=== PATIENT | male | born 1970 | race Caucasian/White ===

== ENCOUNTER 2017-09-03 19:39 | Outpatient (CLI) | payer SELFPAY | END 2017-09-03 19:40 | disposition critical access hospital (66) | LOC: EMS 19:39 | PROVIDERS: ATTEND Surgery | DX: R10.9 Unspecified abdominal pain (principal) | CPT/HCPCS: A0425; A0429 ==

== ENCOUNTER 2017-09-03 20:04 | Emergency (ER) | payer SELFPAY ==
--- NOTE | 2017-09-03 20:19 | ED Physician Documentation ---
PD HPI ABD PAIN - Stated complaint Stated Complaint: ABD PAIN/HX OF CROHN'S - Chief complaint Chief Complaint: Abd Pain - History obtained from History obtained from: Patient, EMS - History of Present Illness Timing - onset: Other (47-year-old gentleman presents by ambulance. He is intoxicated, not a great historian. He says he has Crohn's disease and needs help with pain. Unclear how long he has been in pain or what he has tried before.) Review of Systems Unable to obtain: Intoxicated PD PAST MEDICAL HISTORY - Past Medical History Past Medical History: Yes Cardiovascular: ID Neuro: CVA GI: Crohn's disease - Allergies Allergies/Adverse Reactions: Allergies Allergy/AdvReac Type Severity Reaction Status Date / Time dicyclomine [From Bentyl] Allergy Unknown Verified 09/03/17 20:11 fentanyl Allergy Unknown Verified 09/03/17 20:11 ketorolac [From Toradol] Allergy Unknown Verified 09/03/17 20:11 tramadol Allergy Unknown Verified 09/03/17 20:11 - Social History Does the pt smoke?: No Smoking Status: Never smoker Does the pt drink ETOH?: Yes Does the pt have substance abuse?: No - Immunizations Immunizations are current?: No - POLST Patient has POLST: No PD ED PE NORMAL - Vitals Vital signs reviewed: Yes - General General: Other (Somnolence, arousable, answers simple questions, a vague historian who smells of alcohol. 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 Eye Opening: Spontaneous Motor: Obeys Commands Verbal: Confused GCS Score: 14 Results - Vitals Vitals: Vital Signs - 24 hr 09/03/17 09/03/17 20:06 22:08 Temperature 36.4 C L 36.6 C Heart Rate 84 84 Respiratory 20 18 Rate Blood Pressure 103/60 98/49 L O2 Saturation 93 93 Oxygen O2 Source Room air - Labs Labs: Laboratory Tests 09/03/17 09/03/17 20:25 20:25 WBC 9.7 RBC 3.74 L Hgb 9.7 L Hct 29.2 L MCV 78.1 L MCH 25.9 L MCHC 33.2 RDW 20.0 H Plt Count 390 MPV 6.1 L Neut # 4.5 Lymph # 3.5 [place] # 1.2 H Eos # 0.4 Baso # 0.1 Absolute Nucleated RBC 0.00 Nucleated RBC % 0.0 Sodium 128 L Potassium 3.6 Chloride 94 L Carbon Dioxide 21 Anion Gap 13.0 BUN 7 Creatinine 0.6 Estimated GFR (MDRD) 144 Glucose 84 Calcium 8.4 L Magnesium 1.8 Total Bilirubin 0.5 AST 21 ALT 16 Alkaline Phosphatase 40 L Total Protein 6.5 L Albumin 3.3 Globulin 3.2 Albumin/Globulin Ratio 1.0 Lipase 40 Ethyl Alcohol 258.1 PD MEDICAL DECISION MAKING - ED course ED course: Records reviewed via the [employer] system. Looks like basically he goes to multiple different emergency departments every day seeking care. He was [facility] yesterday. Of note at that visit his hemoglobin was 10.1 which is not significantly different from today. He has a benign belly. Does not seem to have an emergency medical condition other than alcohol intoxication. He was allowed to sleep in the emergency department, care to Dr. Luo at shift change but anticipate that we can probably discharge him in the morning when the buses are running and he is more sober. Departure - Departure Disposition: 01 Home, Self Care Clinical Impression: Alcohol intoxication Qualifiers: Complication of substance-induced condition: uncomplicated Qualified Code(s): F10.920 - Alcohol use, unspecified with intoxication, uncomplicated Condition: Good Record reviewed to determine appropriate education?: Yes Instructions: ED Alcohol Intoxication, ED Anemia Type Not Specified Comments: Call your doctor to arrange a follow-up appointment, make the next available appointment. In the interim, return anytime if worse or if new symptoms develop.
[2017-09-03 20:31] LABS: BASOPHILS # (AUTO) 0.1 10^3/uL (0.0-0.1); BASOPHILS % (AUTO) 1.2 %; EOSINOPHILS # (AUTO) 0.4 10^3/uL (0.0-0.7); EOSINOPHILS % (AUTO) 4.5 %; HCT - HEMATOCRIT 29.2 % (42.0-52.0); HGB - HEMOGLOBIN 9.7 g/dL (14.0-18.0); LYMPHOCYTES # (AUTO) 3.5 10^3/uL (1.5-3.5); LYMPHOCYTES % (AUTO) 35.8 %; MEAN CORPUSCULAR HEMOGLOBIN 25.9 pg (27.0-31.0); MEAN CORPUSCULAR HGB CONC 33.2 g/dL (32.0-36.0); MEAN CORPUSCULAR VOLUME 78.1 fL (80.0-94.0); MEAN PLATELET VOLUME 6.1 fL (7.4-11.4); MONOCYTES # (AUTO) 1.2 10^3/uL (0.0-1.0); MONOCYTES % (AUTO) 12.7 %; NEUTROPHILS # (AUTO) 4.5 10^3/uL (1.5-6.6); NEUTROPHILS % (AUTO) 45.8 %; RED BLOOD COUNT 3.74 10^6/uL (4.70-6.10); UNCORRECTED WHITE BLOOD COUNT 9.7 x10^3/uL; WHITE BLOOD COUNT 9.7 x10^3/uL (4.8-10.8)
[2017-09-03 20:44] LABS: BILIRUBIN,TOTAL 0.5 mg/dL (0.2-1.0); CALCIUM 8.4 mg/dL (8.5-10.3); CREATININE 0.6 mg/dL (0.6-1.2); MAGNESIUM 1.8 mg/dL (1.7-2.8); POTASSIUM 3.6 mmol/L (3.5-5.0); TOTAL PROTEIN 6.5 g/dL (6.7-8.2)
[2017-09-04 05:23] VITALS: BP 112/60
== END 2017-09-04 05:00 | disposition home or self-care (01) ==
LOC: EDSEX → ED 20:04
DX: F10.920 Alcohol use, unspecified with intoxication, uncomplicated (principal); Y90.8 Blood alcohol level of 240 mg/100 ml or more; I25.2 Old myocardial infarction; Z86.73 Personal history of transient ischemic attack (TIA), and cerebral infarction without residual deficits
CPT/HCPCS: 36415; 80053; 80320; 83690; 83735; 85025; 99283; 99284

== ENCOUNTER 2017-09-04 21:51 | Outpatient (CLI) | payer SELFPAY | END 2017-09-04 21:52 | disposition critical access hospital (66) | LOC: EMS 21:51 | PROVIDERS: ATTEND Surgery | DX: R45.851 Suicidal ideations (principal); R10.9 Unspecified abdominal pain | CPT/HCPCS: A0425; A0429 ==

== ENCOUNTER 2017-09-04 22:12 | Emergency (ER) | payer SELFPAY ==
--- NOTE | 2017-09-04 22:38 | ED Physician Documentation ---
History of Present Illness - Stated complaint Stated Complaint: ABD PN - Chief complaint Chief Complaint: Abd Pain - History obtained from History obtained from: Patient, EMS - History of Present Illness Timing: Unknown Severity Comments: gives tangential, unrelated answers when asked pain level - Additonal information Additional information: BIBA. Liu+R from this ED last night. He was also at [facility] ED 2 days ago (09/02/17) and, on that same day, was at [place]. He was also at [facility] ED 09/01/17 (per notes faxed from ). He is a difficult historian, answers nearly all of my questions with tangential , often unrelated, answers. He also frequently tells me "I already answered you " and "didn't you listen?" when I ask again the questions for which he does not provide substantive answers. Medics say patient felt suicidal and c/o abdominal pain. On my HPI, he denies suicidal ideation. He is very difficult to obtain HPI from, but he seems to repeatedly return to abdominal discomfort due to Crohn's disease. He describes this in terms that sound chronic (months). His answers are evasive, and he is argumentative at times. Review of Systems Constitutional: denies: Fever Cardiac: denies: Chest pain / pressure, Palpitations, Pedal edema Respiratory: denies: Dyspnea, Cough GI: reports: Abdominal Pain, Nausea, Diarrhea. denies: Bloody / black stool Psychiatric: denies: Suicidal (denies on my HPI) PD PAST MEDICAL HISTORY - Past Medical History Past Medical History: Yes Cardiovascular: [place] Neuro: CVA GI: Crohn's disease - Allergies Allergies/Adverse Reactions: Allergies Allergy/AdvReac Type Severity Reaction Status Date / Time dicyclomine [From Bentyl] Allergy Unknown Verified 09/03/17 20:11 fentanyl Allergy Unknown Verified 09/03/17 20:11 ketorolac [From Toradol] Allergy Unknown Verified 09/03/17 20:11 tramadol Allergy Unknown Verified 09/03/17 20:11 - Social History Does the pt smoke?: No Smoking Status: Never smoker Does the pt drink ETOH?: Yes Does the pt have substance abuse?: No - Immunizations Immunizations are current?: No - POLST Patient has POLST: No PD ED PE NORMAL - Vitals Vital signs reviewed: Yes - General General: Alert and oriented X 3, No acute distress, Well developed/nourished, Other (slurred speech) - HEENT HEENT: EOMI, Moist mucous membranes, Other (eye patch over left eye) - Cardiac Cardiac: RRR, No murmur - Respiratory Respiratory: No respiratory distress, Clear bilaterally - Abdomen Abdomen: Normal bowel sounds, Soft, Non tender, Non distended - Derm Derm: Normal color, Warm and dry - Extremities Extremities: No edema - Neuro Neuro: Alert and oriented X 3 Eye Opening: Spontaneous Motor: Obeys Commands Verbal: Oriented GCS Score: 15 Results - Vitals Vitals: Vital Signs - 24 hr 09/04/17 09/05/17 09/05/17 22:20 01:27 05:00 Temperature 36.6 C Heart Rate 107 H 78 Respiratory 18 17 18 Rate Blood Pressure 106/73 138/74 H O2 Saturation 100 Oxygen O2 Source Room air PD MEDICAL DECISION MAKING - ED course Complexity details: reviewed old records, re-evaluated patient, considered differential, d/w patient ED course: Patient says he is unable to see a physician because he can't afford one. He also says he can't afford medications. He has at least 4 hospital wrist bracelets in his coat pocket (these fell out when he took off his jacket); they all have August dates but no hospital identifying information. He insists he cannot remember the names of any of these emergency departments; instead, he repeatedly answers "several" or "all of them" when I ask which emergency departments he has been to recently. I also note several prescription bottles which I looked at with his permission. There is prednisone (one tablet remains), aspirin, clopidogrel, and levaquin. I emphasized to him the need to seek outpatient follow-up for his chronic problems. He shows me forms for [facility] care from another hospital and says "they rejected me", although these forms are clearly not filled out. He admits to drinking alcohol tonight, and he has a strong odor of alcohol on his breath. He was allowed to sleep in the ED until clinically sober. His tests were unremarkable both yesterday (this ED, aside from mild hyponatremia and mild anemia) as well as at ED, and thus I do not see an indication for emergent testing at this time for his chronic c/o. Patient slept for several hours in ED. Accompanied by RAFFAELE Borges, I awoke patient at 5:00 AM and explained that I would be discharging him shortly, as there is no indication of a medical emergency at this time. He rapidly became angry, took the BP cuff off, sat up, dressed himself, got into his wheelchair without difficulty or assistance, and wheeled self out to ED waiting room. Departure - Departure Disposition: 01 Home, Self Care Clinical Impression: Alcohol intoxication Qualifiers: Complication of substance-induced condition: uncomplicated Qualified Code(s): F10.920 - Alcohol use, unspecified with intoxication, uncomplicated Condition: Good Instructions: ED Alcohol Intoxication Follow-Up: [facility] [Provider Group] [facility] [Provider Group] Discharge Date/Time: 09/05/17 05:10
[2017-09-05 05:13] VITALS: BP 138/74
== END 2017-09-05 05:10 | disposition home or self-care (01) ==
LOC: EDBD → EDUNIT# → ED 22:12
DX: F10.920 Alcohol use, unspecified with intoxication, uncomplicated (principal)
CPT/HCPCS: 99283